=== PATIENT | female | born 1945 | race Caucasian/White ===

== ENCOUNTER 2025-01-11 07:41 | Day surgery (SDC) | payer MEDICARE ==
[2025-01-11] MEDS: Sodium Chloride 0.9% 10 ML Syringe FLUSH PRN (08:25)
== END 2025-01-11 09:30 | disposition home or self-care (01) ==
LOC: JP.SDS 07:41
PROVIDERS: ATTEND Ophthalmology
DX: H25.11 Age-related nuclear cataract, right eye (principal); I10 Essential (primary) hypertension; E78.00 Pure hypercholesterolemia, unspecified; Z79.899 Other long term (current) drug therapy
CPT/HCPCS: 66984; V2632

== ENCOUNTER 2025-02-08 06:42 | Day surgery (SDC) | payer MEDICARE ==
[2025-02-08] MEDS ORDERED: Sodium Chloride 0.9% 10 ML Syringe FLUSH PRN (07:15)
== END 2025-02-08 08:02 | disposition home or self-care (01) ==
LOC: JP.SDS 06:42
PROVIDERS: ATTEND Ophthalmology
DX: H25.12 Age-related nuclear cataract, left eye (principal); E78.00 Pure hypercholesterolemia, unspecified; I10 Essential (primary) hypertension; Z79.899 Other long term (current) drug therapy
CPT/HCPCS: 66984; V2632; 00142-QZ